=== PATIENT | male | born 1965 | race Asian ===

== ENCOUNTER 2024-01-20 08:09 | Day surgery (SDC) | payer MEDICARE ==
[2024-01-20] VITALS (12 sets, daily range): BP systolic 101–152; BP diastolic 48–89; PULSE 56–70; RESP 15–19; TEMP 97.7; O2SAT 92–100
[~2024-01-20] VITALS: Ht 162.6 cm; Wt 49.0 kg
[2024-01-20] MEDS ORDERED: fentaNYL/PF 50MCG/1 ML 2ML syringe ONE (09:06)
[2024-01-20] MEDS ORDERED: verapamil 2.5 mg/ml inj IV ONE (09:06)
[2024-01-20] MEDS ORDERED: LIDOcaine 1% 30ml preserv. free vial ONE (09:06)
[2024-01-20] MEDS ORDERED: iohexol 350MG/ML 100ml bottle IV ONE ×2 (09:07→09:11)
[2024-01-20] MEDS ORDERED: midazolam 1 mg/ML 2ml injection ONE ×2 (09:07→09:17)
[2024-01-20] MEDS ORDERED: iohexol 350 MG/ML 50ML vial IV ONE (09:07)
[2024-01-20] MEDS ORDERED: heparin 1,000unit/ml 10ml vial 10 ML ONE (09:07)
[2024-01-20] MEDS ORDERED: nitroGLYCERIN 500mcg/5mL D5W 5 ML IV ONE (09:10)
[2024-01-20 09:12] LABS: BASOPHILS % (AUTO) 0.5 % (0-1); EOSINOPHILS # (AUTO) 0.2 X10'3 (0-0.9); EOSINOPHILS % (AUTO) 3.1 % (0-6); HEMATOCRIT 40.9 % (42.0-52.0); HEMOGLOBIN 13.6 g/dl (14.0-17.9); LYMPHOCYTES # (AUTO) 1.1 X10'3 (1.1-4.8); LYMPHOCYTES % (AUTO) 19.3 % (21-51); MEAN CORPUSCULAR HEMOGLOBIN 30.1 PG (27.0-31.0); MEAN CORPUSCULAR HGB CONC 33.2 g/dL (33.0-36.5); MEAN CORPUSCULAR VOLUME 90.7 FL (78-98); MONOCYTES # (AUTO) 0.5 X10'3 (0-0.9); MONOCYTES % (AUTO) 10.1 % (2-12); NEUTROPHILS # (AUTO) 3.7 X10'3 (1.8-7.7); PLATELET COUNT 191 X10'3 (140-440); RED BLOOD COUNT 4.51 X10'6 (4.70-6.10); RED CELL DISTRIBUTION WIDTH 13.8 % (11.5-14.5); WHITE BLOOD COUNT 5.5 X10'3 (4.5-11.0)
[2024-01-20 09:15] LABS: ALBUMIN 3.7 G/DL (3.4-5.0); ANION GAP 10 (8-16); BLOOD UREA NITROGEN 8 MG/DL (7-18); BUN/CREATININE RATIO 8.1 (10.0-20.0); CALCIUM 8.8 MG/DL (8.5-10.1); CHLORIDE 103 MMOL/L (99-107); CREATININE 0.99 MG/DL (0.60-1.10); GLUCOSE 98 MG/DL (70-104); SODIUM 139 MMOL/L (135-145); TOTAL CARBON DIOXIDE 26.1 MMOL/L (24-32); eCRCL 55 ML/MIN; eGFR 77 ML/MIN
[2024-01-20 09:17] LABS: PROTHROMBIN TIME 10.5 SECONDS (9.0-12.0)
[2024-01-20] MEDS ORDERED: sodium bicarbonate 1meq/ml syr 150 ML in dextrose 5%-water 1,000 ML IV SCH (09:20)
[2024-01-20] MEDS ORDERED: LORazepam 0.5 MG tablet PO PRN (09:20)
[2024-01-20] MEDS ORDERED: sodium bicarbonate 1meq/ml syr 150 ML in dextrose 5%-water 1,000 ML IV ONE (09:21)
[2024-01-20] MEDS: diphenhydrAMINE 25mg capsule PO PRN (09:23)
[2024-01-20] MEDS: normal saline 1,000 ML IV SCH (09:24)
[2024-01-20] MEDS ORDERED: LEVO125T8 PO (09:33)
[2024-01-20] MEDS ORDERED: CARV6.2553 PO (09:33)
[2024-01-20] MEDS ORDERED: ASPI-611 PO (09:33)
[2024-01-20] MEDS ORDERED: PANT40TA54 PO (09:33)
[2024-01-20] MEDS ORDERED: RISP-31 PO (09:33)
[2024-01-20] MEDS ORDERED: CLOP75TA34 PO (09:33)
[2024-01-20] MEDS ORDERED: ATOR-2 PO (09:33)
[2024-01-20] MEDS ORDERED: nitroGLYCERIN 0.4mg SUBLingual tab SL ONE (10:24)
[2024-01-20] MEDS ORDERED: HYDROcodone/acetaminophen 10/325mg tab PO PRN (12:05)
[2024-01-20] MEDS ORDERED: HYDROcodone/acetaminophen 5mg/325mg tablet PO PRN (12:05)
[2024-01-20] MEDS ORDERED: proCHLORperazine 10 MG/2 ml inj IV PRN (12:05)
[2024-01-20] MEDS ORDERED: ondansetron/PF 4mg/2ml inj IV PRN (12:05)
[2024-01-20] MEDS ORDERED: normal saline 1000ml 1,000 ML IV SCH (12:05)
== END 2024-01-20 15:45 | disposition home or self-care (01) ==
LOC: SSTAY O 08:09
PROVIDERS: ATTEND Internal Medicine Cardiovascular Disease
DX: I65.23 Occlusion and stenosis of bilateral carotid arteries (principal); I25.118 Atherosclerotic heart disease of native coronary artery with other forms of angina pectoris; I25.2 Old myocardial infarction; I10 Essential (primary) hypertension; E78.5 Hyperlipidemia, unspecified; E03.9 Hypothyroidism, unspecified; I25.5 Ischemic cardiomyopathy; Z79.02 Long term (current) use of antithrombotics/antiplatelets; Z79.82 Long term (current) use of aspirin; Z79.890 Hormone replacement therapy; Z79.899 Other long term (current) drug therapy; Z95.5 Presence of coronary angioplasty implant and graft
CPT/HCPCS: 36222; 36415; 80048; 83735; 85025; 85610; 93005; 93458; 99152; 99153; A6258; C1725; C1760; C1894; J1644; J2001; J2250; J3010; J3490; J7030; Q0163; Q9967; Z7610